=== PATIENT | female | born 1940 | race Caucasian/White ===

== ENCOUNTER 2019-08-15 14:45 | Outpatient (RCR) | payer MEDICARE, BC ==
[~2019-08-15 14:45] MED LIST: ALLEGRA 180MG180 MG PO; GASTROCROM PO; HYDROXYZINE10 MG PO; MACROBID 1100 MG/CAP PO; MEDROL 4MG DOSPA4 MG PO; MIRAPEX0.5 MG PO; PENTASA500 MG PO; PEPCID 20MG TAB20 MG PO; ZOFRAN 4MG T4 MG/TAB PO; ZOFRAN4 M1 PO; antidepressant
== END 2019-09-16 08:41 | disposition home or self-care (01) ==
LOC: WSC 14:45
DX: M17.0 Bilateral primary osteoarthritis of knee (principal)

== ENCOUNTER → 2019-12-05 | Outpatient (CLI) | payer MEDICARE, BC | LOC: COL.VAS 13:44 | DX: M79.89 Other specified soft tissue disorders (principal); Z96.651 Presence of right artificial knee joint ==

== ENCOUNTER 2021-02-16 14:49 | Emergency (ER) | payer MEDICARE, BC ==
[~2021-02-16] VITALS: Ht 162.6 cm; Wt 74.5 kg
[2021-02-16 15:36] VITALS: BP 136/74; TEMP 98.2
[2021-02-16] MEDS ORDERED: TYLENOL 325MG325 MG PO (17:17)
[2021-02-16 18:30] VITALS: PULSE 94
== END 2021-02-16 17:43 | disposition home or self-care (01) ==
LOC: COL.ER 14:49
DX: S00.83XA Contusion of other part of head, initial encounter (principal); M54.2 Cervicalgia; W01.198A Fall on same level from slipping, tripping and stumbling with subsequent striking against other object, initial encounter; Y92.59 Other trade areas as the place of occurrence of the external cause

== ENCOUNTER 2021-12-11 18:32 | Emergency (ER) | payer MEDICARE, BC ==
[~2021-12-11] VITALS: Ht 162.6 cm; Wt 73.6 kg
[~2021-12-11 18:32] MED LIST changes: +TYLENOL 325MG325 MG PO
[2021-12-11 18:47] VITALS: TEMP 98.3
[2021-12-11 22:12] VITALS: BP 162/85; PULSE 78
== END 2021-12-11 22:12 | disposition home or self-care (01) ==
LOC: COL.ER 18:32
DX: R05.9 Cough, unspecified (principal)

== ENCOUNTER → 2021-12-21 | Outpatient (CLI) | payer MEDICARE, BC ==
[~2021-12-21] MED LIST changes: +CELEXA 20MG20 MG/TAB PO; +DELZICOL PO; +FENOGLIDE40 MG PO; +LIPITOR20 MG PO; +MIRAPEX0.25 MG PO; +NORVASC 5MG5 MG/TAB PO; +TRICOR145 MG PO; +TYLENOL 500MG500 MG PO
[2021-12-21 11:04] VITALS: BP 116/79; PULSE 76; TEMP 97.9
== END ==
LOC: COL.ER 10:57
DX: Z48.02 Encounter for removal of sutures (principal)

== ENCOUNTER 2022-01-17 09:14 | Inpatient (IN) | payer MEDICARE, BC ==
[2022-01-17] VITALS (12 sets, daily range): BP systolic 107–152; BP diastolic 50–93; PULSE 68–85; TEMP 97.4–98.5
[~2022-01-17] VITALS: Ht 162.6 cm; Wt 74.5 kg
[~2022-01-17 09:14] MED LIST changes: -CELEXA 20MG20 MG/TAB PO; -DELZICOL PO; -FENOGLIDE40 MG PO; -LIPITOR20 MG PO; -MIRAPEX0.25 MG PO; -NORVASC 5MG5 MG/TAB PO; -TRICOR145 MG PO; -TYLENOL 500MG500 MG PO
[2022-01-17 09:45] LABS: BASO # 0.1 K/mm3 (0.0-0.2); BASO % 1.2 % (0.0-2.0); EOS # 0.2 K/mm3 (0.0-0.7); EOS % 3.5 % (0.0-4.0); GRAN # 2.3 K/mm3 (1.4-6.5); GRAN % 47.8 % (42.2-75.2); HEMATOCRIT 40.2 % (37.0-47.0); HEMOGLOBIN 14.1 g/dl (12.5-16.0); LYMPH # 1.8 K/mm3 (1.2-3.4); MEAN CELL VOLUME 93 fl (80.0-100.0); MEAN CORPUSCULAR HEMOGLOBIN 33 pg (27-31); MEAN CORPUSCULAR HGB CONC 35 g/dl (33.0-37.0); MEAN PLATELET VOLUME 9.5 fl (7.4-10.4); MONO # 0.5 K/mm3 (0.1-0.6); MONO % 10.3 % (1.7-9.3); PLATELET COUNT 261 K/mm3 (130-400); RED BLOOD COUNT 4.34 M/mm3 (4.10-5.30)
[2022-01-17 10:00] LABS: ALANINE AMINOTRANSFERASE 14 U/L (0-55); ALBUMIN 4.4 gm/dL (3.4-4.8); ALKALINE PHOSPHATASE 48 U/L (40-150); ANION GAP 12 mmol/L (7-16); AST,SGOT 16 U/L (5-34); BILIRUBIN,TOTAL 0.7 mg/dL (0.2-1.2); BLOOD UREA NITROGEN 12 mg/dL (10-20); CALCIUM 9.5 mg/dL (8.4-10.2); CARBON DIOXIDE 22 mmol/L (23-31); CHLORIDE 106 mmol/L (98-107); CREATININE, serum 0.91 mg/dL (0.57-1.11); GLUCOSE 100 mg/dL (70-99); LIPASE 19 U/L (8-78); SODIUM 140 mmol/L (136-145); TOTAL PROTEIN 7.1 gm/dL (6.2-8.1)
[2022-01-17 10:10] LABS: TROPONIN-I < 0.010 ng/mL (0.00-0.033)
--- NOTE | 2022-01-17 15:42 | NUR ---
PATIENT ALERT AND ORIENTED AND DENIES CHEST PAIN, CONSENT SIGNED AND PATIENT VERBALIZES UNDERSTANDING PROCEDURE. ER TO CALL REPORT TO FLOOR RN. FAMILY TAKES PATIENT BELONGINGS HOME. PLEASE SEE MERGE FOR CATH DOCUMENTATION WELL MEDICATION ADMINISTRATION AND HEMODYNAMIC MONITORING.
--- NOTE | 2022-01-17 16:32 | NUR ---
PT ARRIVED TO FLOOR, VITALS ATTACHED TO PT, ASSESSMENT PERFORMED, PT DENIES PAIN, PT ORIENTED TO ROOM, PT ORDERED MEAL, NO OTHER NEEDS
--- NOTE | 2022-01-17 18:02 | NUR ---
PT C/0 BACK PAIN DESCRIBED SHARP IN L UPPER BACK. RESOLVED IN A FEW SECONDS. BP CUFF THEN WENT OFF FOR VITALS AND PT SUDDENLY HAD C/O L SIDED CP WHICH ALSO RESOLVED IN A FEW SECONDS. PT STATES THIS WAS THE PAIN SHE WAS HAVING LAST NIGHT AND THIS MORNING. 2ML OF AIR REMOVED FROM TR BAND, NO LEAKING OR BLEEDING. SITE SOFT. YASSINE GIRALDO
--- NOTE | 2022-01-17 18:46 | NUR ---
BAND DEFLATED BY 3ML WITH MAYRA CLAY PREPARATION SUPERVISOR RN DURING BEDSIDE SHIFT REPORT, PT NOT COMPLAINING OF CHEST PAIN AT THIS TIME. SITTING UP EATING DINNER. 7ML OF AIR LEFT IN TR BAND, WRIST SOFT W/O TENDERNESS
[2022-01-17] MEDS ORDERED: DELZICOL PO (19:40)
[2022-01-17] MEDS ORDERED: FENOGLIDE40 MG PO (19:41)
[2022-01-17] MEDS ORDERED: TRICOR145 MG PO (19:44)
--- NOTE | 2022-01-17 20:02 | NUR ---
TR band was at 10 ml at shift change. Day shift RN removed 3ml. I re-assessed 15 mins later and removed another 3 ml. No drainage, site soft. Removed another 2 ml, and re-assessed later. Re-assessed again about 20 mins later and removed the last 2 ml's now. Site is clean and dry, soft. No bleeding or drainage. Will continue to re-assess every 15 mins.
--- NOTE | 2022-01-17 22:53 | NUR ---
Pt alert and oriented x4 this evening. At shift change pt was sitting up in bed eating dinner. Has since then laid down and is now resting. Pt reported a headache and feeling "yucky" and being unable to sleep. Notified the provider and tylenol prn and melatonin were ordered and administered to the pt per orders. TR band is off the right radial site. Site remains soft, with 2+ radial pulse, fingers and warm, pt denies numbess/tingling in fingers. Band was removed around 1999 after releasing air at 15 minute intervals. No drainage or edema at the site. Pt denies pain at the site. Pt continues to deny chest pain. Reviewed med rx with pt. She is a poor historian in regards to medications. Seems to know most of the medications she is on and knows when she last took them, but is unsure of dosages. Shift assessment completed. Medications administered per orders. Completed post-op vital signs. Vital signs remain stable. Pt reports no questions, will continue to monitor.
--- NOTE | 2022-01-17 23:13 | NUR ---
Pt began complaining of chest pain around 2300. I got a set of VS. 65 HR, NSR on tele, 123/65 BP, 96% on room air, and 16RR. Pt denied SOB, dizziness. No diaphoresis noted. Stated the pain was "chest pain not heart pain" and was causing the back of her neck to hurt, and her stomach to hurt. The pt stated feeling bloated and burped while I was in the room. Notified the provider. No new changes yet, but will make changes at ordered. Will continue to monitor the pt.
--- NOTE | 2022-01-17 23:43 | NUR ---
Pt states chest pain stopped about 5 minutes after it began. Provider notified, and new medication orders placed. Will administer as ordered.
[2022-01-18 00:14] VITALS: BP 110/43; PULSE 63; TEMP 97.4
--- NOTE | 2022-01-18 01:17 | NUR ---
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 Provider is aware. Will continue to monitor.
[2022-01-18 03:48] VITALS: BP 108/50; PULSE 63; TEMP 97.6
--- NOTE | 2022-01-18 05:01 | NUR ---
Pt remained alert and oriented overnight. Pt appears to have difficulty sleeping, has been sitting up on side of bed all night. Reports she is having difficulty sleeping d/t her restless legs. No more reports of chest pain, except for the one instance this evening (see previous notes) . Pt has not reported any new itching. IV fluids continue into LAC IV. Vital signs remain stable and pt remains in NSR. Pt is currently sitting up on side of bed and is moving her legs around continuosly. Provided pt with nourishment throughout the night. Pt does not report any questions at this time, will continue to monitor.
[2022-01-18 06:12] LABS: BASO # 0.1 K/mm3 (0.0-0.2); BASO % 1.2 % (0.0-2.0); EOS # 0.2 K/mm3 (0.0-0.7); EOS % 4.5 % (0.0-4.0); GRAN # 2.3 K/mm3 (1.4-6.5); GRAN % 45.5 % (42.2-75.2); LYMPH # 1.9 K/mm3 (1.2-3.4); LYMPH % 37.6 % (20.0-51.0); MEAN CELL VOLUME 95 fl (80.0-100.0); MEAN CORPUSCULAR HGB CONC 34 g/dl (33.0-37.0); MEAN PLATELET VOLUME 9.6 fl (7.4-10.4); MONO # 0.6 K/mm3 (0.1-0.6); MONO % 11.2 % (1.7-9.3); PLATELET COUNT 213 K/mm3 (130-400); RED BLOOD COUNT 3.73 M/mm3 (4.10-5.30); REDCELL DISTRIBUTION WIDTH-CV 11.9 % (11.5-14.5)
[2022-01-18 06:15] LABS: HEMATOCRIT 35.6 % (37.0-47.0); MEAN CORPUSCULAR HEMOGLOBIN 32 pg (27-31)
[2022-01-18 06:21] LABS: CALCIUM 8.7 mg/dL (8.4-10.2); CHOLESTEROL RISK RATIO 3.6; CREATININE, serum 0.76 mg/dL (0.57-1.11); POTASSIUM 3.7 mmol/L (3.5-4.5)
--- NOTE | 2022-01-18 07:50 | NUR ---
PT SURY, AOX4, DENIES PAIN, REPORTS NO CHEST PAIN SINCE [phone]. PT HAVING FRIEND BRING IN MEDICATIONS FOR MED REC. WILL CALL PHARMACY FOR LIST WHEN IT OPENS. ASSESSMENT PERFORMED, MEDICATIONS GIVEN. PT DENIES N/V/D. NO OTHER NEEDS
[2022-01-18 07:56] VITALS: BP 104/66; PULSE 71; TEMP 97.6
[2022-01-18] MEDS ORDERED: NORVASC 5MG5 MG/TAB PO ×3 (09:51→09:53)
[2022-01-18] MEDS ORDERED: LIPITOR20 MG PO ×2 (09:51)
[2022-01-18] MEDS ORDERED: TYLENOL 500MG500 MG PO (09:51)
[2022-01-18] MEDS ORDERED: MIRAPEX0.25 MG PO (10:16)
[2022-01-18] MEDS ORDERED: CELEXA 20MG20 MG/TAB PO (10:17)
[2022-01-18 11:46] VITALS: BP 108/56; PULSE 68; TEMP 98
--- NOTE | 2022-01-18 12:10 | NUR ---
DISCHARGE EDUCATION PROVIDED, IV REMOVED, TELE REMOVED, PT ESCORTED OUT VIA WHEELCHAIR WITH PT BELONGINGS. NO OTHER NEEDS
== END 2022-01-18 12:10 | disposition home or self-care (01) | DRG 842 ==
LOC: COL.ER 09:14 → MEDICAL 12:11 → COL.ER 12:11 → MEDICAL 01-18 12:10
PROVIDERS: Emergency Medicine; Physician Assistant; ADMIT Internal Medicine
PROC: 4A023N7 Measurement of Cardiac Sampling and Pressure, Left Heart, Percutaneous Approach (ICD-10-PCS; principal; 2022-01-17)
PROC: B2111ZZ Fluoroscopy of Multiple Coronary Arteries using Low Osmolar Contrast (ICD-10-PCS; 2022-01-17)
DX: D47.02 Systemic mastocytosis (principal); I10 Essential (primary) hypertension; R07.89 Other chest pain; I25.10 Atherosclerotic heart disease of native coronary artery without angina pectoris; G25.81 Restless legs syndrome; F32.A Depression, unspecified; J30.2 Other seasonal allergic rhinitis; E78.5 Hyperlipidemia, unspecified; Z96.653 Presence of artificial knee joint, bilateral; Z90.710 Acquired absence of both cervix and uterus; Z88.2 Allergy status to sulfonamides; Z88.0 Allergy status to penicillin; Z88.5 Allergy status to narcotic agent
CPT/HCPCS: 99223-AI; 99239; J1644; J2250; J7030; Q9967